=== PATIENT | male | born 1985 | race African-American/Black ===

== ENCOUNTER 2024-04-23 17:44 | Emergency (ER) | payer SELFPAY ==
[~2024-04-23] VITALS: Ht 177.8 cm; Wt 80.9 kg
[~2024-04-23 17:44] MED LIST: NO MEDS
[2024-04-23 17:49] VITALS: BP 120/66; PULSE 94; RESP 18; TEMP 97.6
== END 2024-04-23 18:42 | disposition left against medical advice (07) ==
LOC: EMS 18:06
DX: R06.02 Shortness of breath (principal); Z53.21 Procedure and treatment not carried out due to patient leaving prior to being seen by health care provider